=== PATIENT | female | born 2000 | race African-American/Black ===

== ENCOUNTER 2019-01-25 02:47 | Emergency (ER) | payer SELFPAY ==
[~2019-01-25] VITALS: Ht 160 cm; Wt 90.9 kg
[~2019-01-25 02:47] MED LIST: INTUNIV3 MG PO
[2019-01-25 02:54] VITALS: TEMP 97.1
[2019-01-25 03:04] LABS: COLLECTION METHOD CLEAN CATCH
[2019-01-25 03:13] LABS: PH 5 (5-8); SQUAMOUS EPITHELIAL 0-2 /hpf; URINE APPEARANCE Cloudy; URINE BACTERIA None Seen /hpf; URINE BILIRUBIN Negative (NEGATIVE); URINE BLOOD 3+ (NEGATIVE); URINE COLOR Yellow; URINE GLUCOSE Negative (NEGATIVE); URINE KETONE Negative (NEGATIVE); URINE LEUKOCYTE ESTERASE 3+ (NEGATIVE); URINE NITRATE Negative (NEGATIVE); URINE PROTEIN(semi-quant) 2+ (NEGATIVE); URINE RBC >50 /hpf; URINE UROBILINOGEN Negative (NEGATIVE)
[2019-01-25] MEDS ORDERED: PYRIDIUM200 M1 PO (03:38)
[2019-01-25] MEDS ORDERED: CEFTIN500 MG PO (03:38)
[2019-01-25 04:05] VITALS: BP 130/80; PULSE 85
== END 2019-01-25 04:06 | disposition home or self-care (01) ==
LOC: COL.ER 02:47
PROVIDERS: Emergency Medicine
DX: N30.90 Cystitis, unspecified without hematuria (principal)
CPT/HCPCS: J0696

== ENCOUNTER 2019-10-10 02:06 | Emergency (ER) | payer SELFPAY ==
[~2019-10-10] VITALS: Ht 160 cm; Wt 90.9 kg
[~2019-10-10 02:06] MED LIST changes: +CEFTIN500 MG PO; +PYRIDIUM200 M1 PO
[2019-10-10 02:46] LABS: STREP SCREEN POSITIVE
[2019-10-10 03:14] VITALS: BP 138/67; PULSE 84; TEMP 100.4
== END 2019-10-10 03:18 | disposition home or self-care (01) ==
LOC: COL.ER 02:06
PROVIDERS: Nurse Practitioner Primary Care
DX: J03.00 Acute streptococcal tonsillitis, unspecified (principal)
CPT/HCPCS: J0561

== ENCOUNTER 2021-01-12 21:10 | Emergency (ER) | payer SELFPAY ==
[~2021-01-12] VITALS: Ht 160 cm; Wt 104.5 kg
[2021-01-12 21:16] VITALS: TEMP 99.5
[2021-01-12] MEDS ORDERED: ZITHROMAX Z PA250 MG PO (22:22)
[2021-01-12 22:32] VITALS: BP 137/87; PULSE 100
[2021-01-13] MEDS ORDERED: ZOFRAN ODT4 MG PO (22:12)
== END 2021-01-12 22:32 | disposition home or self-care (01) ==
LOC: COL.ER 21:10
DX: N39.0 Urinary tract infection, site not specified (principal); J20.9 Acute bronchitis, unspecified; F32.9 Major depressive disorder, single episode, unspecified; J03.00 Acute streptococcal tonsillitis, unspecified; Z20.822 Contact with and (suspected) exposure to COVID-19

== ENCOUNTER 2021-01-13 20:04 | Emergency (ER) | payer SELFPAY ==
[~2021-01-13] VITALS: Ht 160 cm; Wt 104.5 kg
[~2021-01-13 20:04] MED LIST changes: +ZITHROMAX Z PA250 MG PO
[2021-01-13 20:19] VITALS: TEMP 97.5
[2021-01-13] MEDS ORDERED: ZOFRAN ODT4 MG PO (22:12)
[2021-01-13 22:17] VITALS: BP 151/90; PULSE 89
== END 2021-01-13 22:17 | disposition home or self-care (01) ==
LOC: COL.ER 20:04
DX: J20.9 Acute bronchitis, unspecified (principal); J03.00 Acute streptococcal tonsillitis, unspecified; F32.9 Major depressive disorder, single episode, unspecified; N39.0 Urinary tract infection, site not specified
CPT/HCPCS: J2550

== ENCOUNTER 2021-05-08 18:29 | Emergency (ER) | payer SELFPAY ==
[~2021-05-08] VITALS: Ht 160 cm; Wt 100.0 kg
[~2021-05-08 18:29] MED LIST changes: +ZOFRAN ODT4 MG PO
[2021-05-08 20:39] LABS: COLLECTION METHOD CLEAN CATCH
[2021-05-08 20:55] LABS: MUCOUS Present (NOT PRESENT); PH 5 (5-8); URINE APPEARANCE Clear (CLEAR/HAZY); URINE BACTERIA None Seen /hpf (NONE SEEN); URINE BILIRUBIN Negative (NEGATIVE); URINE BLOOD 1+ (NEGATIVE); URINE COLOR Yellow (YELLOW); URINE GLUCOSE Negative (NEGATIVE); URINE KETONE Negative (NEGATIVE); URINE LEUKOCYTE ESTERASE Negative (NEGATIVE); URINE NITRATE Negative (NEGATIVE); URINE PROTEIN(semi-quant) Negative (NEGATIVE)
[2021-05-08 23:47] VITALS: BP 122/68; PULSE 72; TEMP 98.4
== END 2021-05-08 23:47 | disposition home or self-care (01) ==
LOC: COL.ER 18:29
PROVIDERS: Personal Emergency Response Attendant
DX: A54.9 Gonococcal infection, unspecified (principal)
CPT/HCPCS: J0696

== ENCOUNTER 2021-10-08 15:11 | Emergency (ER) | payer SELFPAY ==
[~2021-10-08] VITALS: Ht 160 cm; Wt 104.5 kg
[2021-10-08 15:39] VITALS: BP 116/62; PULSE 53; TEMP 98.8
[2021-10-08 16:24] LABS: COLLECTION METHOD CLEAN CATCH
[2021-10-08 16:32] LABS: MUCOUS Present (NOT PRESENT); PH 5 (5-8); URINE APPEARANCE Hazy (CLEAR/HAZY); URINE BACTERIA None Seen /hpf (NONE SEEN); URINE BILIRUBIN Negative (NEGATIVE); URINE BLOOD 2+ (NEGATIVE); URINE COLOR Yellow (YELLOW); URINE GLUCOSE Negative (NEGATIVE); URINE KETONE Negative (NEGATIVE); URINE LEUKOCYTE ESTERASE Negative (NEGATIVE); URINE NITRATE Negative (NEGATIVE); URINE PROTEIN(semi-quant) Negative (NEGATIVE); URINE UROBILINOGEN Negative (NEGATIVE)
== END 2021-10-08 17:15 | disposition home or self-care (01) ==
LOC: COL.ER 15:11
PROVIDERS: Nurse Practitioner
DX: N89.8 Other specified noninflammatory disorders of vagina (principal); F17.200 Nicotine dependence, unspecified, uncomplicated; Z20.2 Contact with and (suspected) exposure to infections with a predominantly sexual mode of transmission; Z28.310 Unvaccinated for COVID-19
CPT/HCPCS: J0696